=== PATIENT | female | born 1965 | race Caucasian/White ===

== ENCOUNTER 2018-10-30 06:50 | Outpatient (CLI) | payer OTHER ==
--- NOTE | 2018-10-30 10:27 | CT ---
CT of the abdomen and pelvis with and without contrast: 10/30/2018 COMPARISON: None available History: Small bowel obstruction in August 2018, possible inflammation TECHNIQUE: Axial CT imaging obtained from lung bases through pubic symphysis with and without IV cont rast following ingestion of Volumen Coronal and sagittal reformatted imaging obtained. FINDINGS: The visualized lung bases are unremarkable. No free intraperitoneal air or fluid is seen. The liver, spleen, gallbladder, and adrenal glands appear grossly unremarkable. There is a low-density lesion associated with the posterior aspect of the uncinate process of the hamlin creas measuring approximately 1.8 cm in craniocaudal dimension and 1 cm in AP dimension. This approaches the pancreatic duct. Bilateral kidneys appear grossly unremarkable. No evidence for bowel inflammatory change or bowel obstruction. The appendix is visualized and appear s within normal limits. The vascular structures appear grossly unremarkable. No lymphadenopathy is noted. There is multilevel lower lumbar spine facet hypertrophic change. No worrisome lytic or blastic bone lesion identified. IMPRESSION: No evidence for bowel inflammatory change or obstruction. Low-density, likely cystic, pancreatic lesion. Further assessment via MRI/MRCP suggested. CODE T
== END 2018-10-30 06:51 | disposition home or self-care (01) ==
LOC: CT 06:50
PROVIDERS: ATTEND Physician Assistant Medical
DX: K64.8 Other hemorrhoids (principal); K56.609 Unspecified intestinal obstruction, unspecified as to partial versus complete obstruction; R10.31 Right lower quadrant pain
CPT/HCPCS: 74178

== ENCOUNTER 2019-04-21 09:05 | Outpatient (CLI) | payer OTHER ==
--- NOTE | 2019-04-21 09:27 | RAD ---
RIGHT FOOT 3 VIEWS: Date: 04/21/2019 HISTORY: Pain in right foot, fall. FINDINGS/IMPRESSION: No acute fracture or dislocation is seen. Plantar and posterior calcaneal spurs are present. POS: OFF
== END 2019-04-21 09:06 | disposition home or self-care (01) ==
LOC: BICRAD 09:05
PROVIDERS: ATTEND Family Medicine
DX: M79.671 Pain in right foot (principal); M77.31 Calcaneal spur, right foot; M77.32 Calcaneal spur, left foot

== ENCOUNTER 2021-12-12 12:06 | Outpatient (CLI) | payer BC | END 2021-12-12 12:07 | disposition home or self-care (01) | LOC: BICMAMMO 12:06 | PROVIDERS: ATTEND Obstetrics & Gynecology | DX: Z12.31 Encounter for screening mammogram for malignant neoplasm of breast (principal) | CPT/HCPCS: 77063; 77067 ==